=== PATIENT | male | born 1965 | race Caucasian/White ===

== ENCOUNTER 2018-10-09 12:33 | Observation (INO) | payer MEDICAID, OTHER ==
[~2018-10-09] VITALS: Ht 170.2 cm; Wt 73.8 kg
[~2018-10-09 12:33] MED LIST: ASPI-831 PO; ATOR-2 PO; CLOP75TA28 PO; LISI-313 PO; LISI10TA2 PO; LOSA25TA2 PO; METO-335 PO; NAPR-985 PO
[2018-10-09] MEDS ORDERED: NITROGLYCERIN 2% 1 GM OINT PKT TD STA (15:22)
[2018-10-09] MEDS ORDERED: ASPIRIN 81 MG TAB PO STA (15:22)
[2018-10-09] MEDS ORDERED: NITROGLYCERIN (SL) 0.4 MG TAB SL PRN ×2 (15:30→17:30)
[2018-10-09] MEDS ORDERED: ONDANSETRON 4 MG INJ IV PRN ×2 (17:00→17:30)
[2018-10-09] MEDS ORDERED: ACETAMINOPHEN 325 MG TAB PO PRN ×2 (17:00→17:30)
[2018-10-09] MEDS ORDERED: HYDROCODONE/APAP (5/325) TAB PO PRN (17:30)
[2018-10-09] MEDS ORDERED: NACL 0.9% 3 ML SYG IV SCH (17:30)
[2018-10-09] MEDS ORDERED: morphine 2 MG INJ IV PRN (17:30)
[2018-10-09] MEDS ORDERED: MAGNESIUM HYDROXIDE 30ML CUP PO PRN (17:30)
[2018-10-09] MEDS ORDERED: DOCUSATE SODIUM 100 MG CAP PO PRN (17:30)
--- NOTE | 2018-10-09 17:37 | ERD ---
ER Documentation Chief Complaint Chief Complaint "FEELS LIKE MY BLOOD PRESSURE IS HIGH"; CHEST PAIN HPI Patient is a 53-year-old male with cardiac disease and hypertension who presents with chest pain. The the patient has had chest pain for the past 2 days which is left-sided. It is a pressure-like constant pain. He said no treatment as of yet. He was concerned because his blood pressure was elevated recently as well. Upon review of old medical records the patient one previous visit to the ER in March 2018. His primary doctor is in [place]. ROS All systems reviewed and are negative except as per history of present illness. Medications Home Meds Active Scripts Aspirin (Aspirin) 81 Mg Chew, 81 MG PO DAILY for 120 Days, #120 TAB 5 Refills Prov:WHITNEY SCHAFER MD 03/19/18 Metoprolol Succinate* (Toprol XL*) 25 Mg Tab.sr.24h, 25 MG PO DAILY for 120 Days, #120 TAB 5 Refills Prov:WHITNEY SCHAFER MD 03/19/18 Clopidogrel Bisulfate (Clopidogrel) 75 Mg Tablet, 75 MG PO DAILY for 120 Days, #120 TAB 2 Refills Prov:WHITNEY SCHAFER MD 03/19/18 Reported Medications Lisinopril* (Lisinopril*) 10 Mg Tablet, 10 MG PO QAM, #30 TAB 10/09/18 Lisinopril* (Lisinopril*) 5 Mg Tablet, 5 MG PO QPM, #30 TAB 10/09/18 Discontinued Scripts Lisinopril* (Lisinopril*) 5 Mg Tablet, 5 MG PO DAILY for 120 Days, #120 TAB 5 Refills Prov:WHITNEY SCHAFER MD 03/19/18 Atorvastatin* (Atorvastatin*) 80 Mg Tablet, 80 MG PO HS for 120 Days, #120 TAB 5 Refills Prov:WHITNEY SCHAFER MD 03/19/18 Allergies Allergies: Coded Allergies: No Known Drug Allergies (Verified Allergy, Unknown, 10/09/18) PMhx/Soc History of Surgery: No Anesthesia Reaction: No Hx Neurological Disorder: No Hx Respiratory Disorders: No Hx Cardiac Disorders: No Hx Psychiatric Problems: No Hx Miscellaneous Medical Probl: No Hx Alcohol Use: Yes Hx Substance Use: No Hx Tobacco Use: No Smoking Status: Never smoker FmHx Family History: No coronary disease Physical Exam Vitals Vital Signs Date Temp Pulse Resp B/P (MAP) Pulse Ox O2 O2 Flow FiO2 Time Delivery Rate 10/09/18 98.6 87 20 172/88 99 12:36 (116) Physical Exam Const: No acute distress Head: Atraumatic Eyes: Normal Conjunctiva ENT: Normal External Ears, Nose and Mouth. Neck: Full range of motion. No meningismus. Resp: Clear to auscultation bilaterally Cardio: Regular rate and rhythm, no murmurs Abd: Soft, non tender, non distended. Normal bowel sounds Skin: No petechiae or rashes Back: No midline or flank tenderness Ext: No cyanosis, or edema Neur: Awake and alert Psych: Normal Mood and Affect Result Diagram: 10/09/18 1540 10/09/18 1540 Results 24 hrs Laboratory Tests Test 10/09/18 15:40 White Blood Count 6.1 10^3/ul Red Blood Count 5.11 10^6/ul Hemoglobin 17.0 g/dl Hematocrit 49.4 % Mean Corpuscular Volume 96.7 fl Mean Corpuscular Hemoglobin 33.3 pg Mean Corpuscular Hemoglobin Concent 34.4 g/dl Red Cell Distribution Width 12.3 % Platelet Count 255 10^3/UL Mean Platelet Volume 9.7 fl Immature Granulocytes % 0.500 % Neutrophils % 67.4 % Lymphocytes % 21.9 % Monocytes % 7.7 % Eosinophils % 1.5 % Basophils % 1.0 % Nucleated Red Blood Cells % 0.0 /100WBC Immature Granulocytes # 0.030 10^3/ul Neutrophils # 4.1 10^3/ul Lymphocytes # 1.3 10^3/ul Monocytes # 0.5 10^3/ul Eosinophils # 0.1 10^3/ul Basophils # 0.1 10^3/ul Nucleated Red Blood Cells # 0.0 10^3/ul Sodium Level 140 mmol/L Potassium Level 3.8 mmol/L Chloride Level 105 mmol/L Carbon Dioxide Level 27 mmol/L Anion Gap 8 Blood Urea Nitrogen 10 mg/dl Creatinine 0.76 mg/dl Est Glomerular Filtrat Rate mL/min > 60 mL/min Glucose Level 93 mg/dl Calcium Level 9.5 mg/dl Troponin I < 0.012 ng/ml Current Medications Medications Dose Sig/Sharon Start Time Status Last (Trade) Ordered Route PRN Stop Time Admin Dose Reason Admin Aspirin 162 mg ONCE STAT 10/09/18 DC 10/09/18 (Aspirin) PO 15:22 10/09/18 15:26 15:23 1 inch ONCE STAT 10/09/18 DC 10/09/18 Nitroglycerin TD 15:22 10/09/18 15:27 15:23 (Nitroglyceri n 2% Oint) 1 tab Q5M UP TO 3 10/09/18 10/09/18 Nitroglycerin DOSES PRN 15:30 15:26 SL .CHEST (Nitroglyceri PAIN n (Sl Tab) 0.4 Mg) Ondansetron 4 mg ER BRIDGE 10/09/18 HCl (Zofran PRN IV 17:00 10/10/18 Inj) NAUSEA/VOMITI 16:59 NG 650 mg ER BRIDGE 10/09/18 Acetaminophen PRN PO 17:00 10/10/18 (Tylenol .MILD PAIN 16:59 Tab) 1-3 OR TEMP Aspirin 81 mg DAILY PO 10/10/18 UNV (Aspirin) 09:00 Clopidogrel 75 mg DAILY PO 10/10/18 UNV Bisulfate 09:00 (plaVIX) Lisinopril 5 mg QPM PO 10/09/18 UNV (Zestril) 21:00 Lisinopril 10 mg QAM PO 10/10/18 UNV (Zestril) 09:00 Metoprolol 25 mg DAILY PO 10/10/18 UNV Succinate 09:00 (Toprol Xl) IV Flush 3 ml PER 10/09/18 UNV (NS 3 ml) PROTOCOL IV 17:30 Ondansetron 4 mg Q6H PRN 10/09/18 UNV HCl (Zofran IV 17:30 Inj) NAUSEA/VOMITI NG 1 tab Q5M PRN 10/09/18 UNV Nitroglycerin SL .CHEST 17:30 PAIN (Nitroglyceri n (Sl Tab) 0.4 Mg) 650 mg Q6H PRN 10/09/18 UNV Acetaminophen PO .PAIN 1-3 17:30 (Tylenol OR TEMP Tab) 1 tab Q6H PRN 10/09/18 UNV Acetaminophen PO .PAIN 4-6 17:30 / Hydrocodone Bitart ([place] (5/325)) Morphine 2 mg Q4H PRN 10/09/18 UNV Sulfate IV .PAIN 17:30 (morphine) 7-10 Docusate 100 mg Q12H PRN 10/09/18 UNV Sodium PO 17:30 (Colace) .CONSTIPATION Magnesium 30 ml DAILY PRN 10/09/18 UNV Hydroxide PO 17:30 (Milk Of Mag) .CONSTIPATION Famotidine 20 mg Q12 PO 10/09/18 UNV (Pepcid) 21:00 Procedures/MDM EKG read by me: Rate/Rhythm: Regular rate and rhythm at a normal rate Intervals: Normal Impression: No evidence of ischemia or arrhythmia Chest x-ray read by radiology. Patient is a 53-year-old male who presents with chest pain. I am concerned as the patient has previous stent and cardiac disease. I am concerned for possible acute coronary syndrome. I doubt pneumonia, pneumothorax, pulmonary embolism, or aortic dissection. The patient will be admitted to Dr. Pop from the panel team to a telemetry observation bed. Initial troponin is negative. The patient was given aspirin and nitroglycerin. Departure Diagnosis: Primary Impression: Chest pain Chest pain type: unspecified Qualified Codes: R07.9 - Chest pain, unspecified Condition: CARMELITA Wilson MD Oct 09, 2018 17:37
[2018-10-09] MEDS ORDERED: hydrALAzine 20 MG INJ IV PRN (18:00)
--- NOTE | 2018-10-09 18:53 | HP ---
Date/Time of Note Date/Time of Note DATE: 10/09/18 TIME: 18:45 Assessment/Plan VTE Prophylaxis SCD applied (from Nsg): Yes Pharmacological prophylaxis: NA/contraindicated Pharm contraindication: low risk/ambulating Lines/Catheters IV Catheter Type (from Nrsg): Saline Lock Assessment/Plan Assessment/Plan 1. Acute chest pain, rule out ACS - most likely musculoskeletal as is reproducible on exam - initial Trop negative and will check serial troponins - no ST changes on EKG - will give Naproxen for MSK pain and monitor - ECHO from 03/2018 noted 2. Uncontrolled HTN - will change to losartan and monitor for improvement in dry cough. Will adjust medications as needed for better control - continue BB 3. h/o NSTEMI - PCI in 03/2018 and has been compliant on DAPT - Cardiology consulted for monitoring given recent ACS event 4. Diet - Cardiac 5. GI ppx - H2 jenny 6. Disposition - Admit to telemetry for treatment of uncontrolled hypertension and evaluation of acute chest pain Result Diagram: 10/09/18 1540 10/09/18 1540 Results 24hrs Laboratory Tests Test 10/09/18 15:40 White Blood Count 6.1 Red Blood Count 5.11 Hemoglobin 17.0 Hematocrit 49.4 Mean Corpuscular Volume 96.7 Mean Corpuscular Hemoglobin 33.3 H Mean Corpuscular Hemoglobin Concent 34.4 Red Cell Distribution Width 12.3 Platelet Count 255 Mean Platelet Volume 9.7 Immature Granulocytes % 0.500 H Neutrophils % 67.4 Lymphocytes % 21.9 Monocytes % 7.7 Eosinophils % 1.5 Basophils % 1.0 Nucleated Red Blood Cells % 0.0 Immature Granulocytes # 0.030 Neutrophils # 4.1 Lymphocytes # 1.3 Monocytes # 0.5 Eosinophils # 0.1 Basophils # 0.1 Nucleated Red Blood Cells # 0.0 Sodium Level 140 Potassium Level 3.8 Chloride Level 105 Carbon Dioxide Level 27 Anion Gap 8 Blood Urea Nitrogen 10 Creatinine 0.76 Est Glomerular Filtrat Rate mL/min > 60 Glucose Level 93 Calcium Level 9.5 Troponin I < 0.012 HPI/ROS Admit Date/Time Admit Date/Time 10/09/18 Hx of Present Illness 53 yo M with PMH NSTEMI s/p PCI in 03/2018 and HTN presented to ED with complaints of left sided chest pain for the past 2 days. Pain is reproducible but denies any heavy lifting or trauma to area. He also states it has been constant but denies any shortness of breath, dizziness, nausea, vomiting, LOC, abdominal issues, or palpitations. He also is concerned about his elevated blood pressure which is causing discomfort to his right ear. He has not followed up with Cardiology since discharge in March. Of note patient does complain of dry cough that is worse at night and states it began after he was discharged. ROS All 12 systems reviewed and pertinent positives as per HPI. All others negative. Constitutional: No chills, No fatigue, No nausea Eyes: No discharge ENT: other (right ear discomfort) Respiratory: cough; No shortness of breath, No sputum, No wheezing Cardiovascular: chest pain; No edema, No lightheadedness, No palpitations Gastrointestinal: No pain, No constipation, No diarrhea, No nausea, No vomiting Genitourinary: no complaints Musculoskeletal: No back pain, No neck pain Skin: No bruising, No laceration, No rash Neurologic: No confusion, No focal-weakness, No syncope Endocrine: no complaints Psychological: nl mood/affect Immunologic: no complaints PMH/Family/Social Past Medical History Medical History: hypertension, other (NSTEMI) Medications Current Medications Aspirin (Aspirin) 81 mg DAILY PO ; Start 10/10/18 at 09:00 Clopidogrel Bisulfate (plaVIX) 75 mg DAILY PO ; Start 10/10/18 at 09:00 Metoprolol Succinate (Toprol Xl) 25 mg DAILY PO ; Start 10/10/18 at 09:00 IV Flush (NS 3 ml) 3 ml PER PROTOCOL IV ; Start 10/09/18 at 17:30 Ondansetron HCl (Zofran Inj) 4 mg Q6H PRN IV NAUSEA/VOMITING; Start 10/09/18 at 17:30 Nitroglycerin (Nitroglycerin (Sl Tab) 0.4 Mg) 1 tab Q5M PRN SL .CHEST PAIN; Start 10/09/18 at 17:30 Acetaminophen (Tylenol Tab) 650 mg Q6H PRN PO .PAIN 1-3 OR TEMP; Start 10/09/18 at 17:30 Acetaminophen/ Hydrocodone Bitart ([place] (5/325)) 1 tab Q6H PRN PO .PAIN 4-6; Start 10/09/18 at 17:30 Morphine Sulfate (morphine) 2 mg Q4H PRN IV .PAIN 7-10; Start 10/09/18 at 17:30 Docusate Sodium (Colace) 100 mg Q12H PRN PO .CONSTIPATION; Start 10/09/18 at 17:30 Magnesium Hydroxide (Milk Of Mag) 30 ml DAILY PRN PO .CONSTIPATION; Start 10/09/18 at 17:30 Famotidine (Pepcid) 20 mg Q12 PO ; Start 10/09/18 at 21:00 Losartan Potassium (Cozaar) 25 mg BID PO ; Start 10/09/18 at 21:00 Hydralazine HCl (Apresoline) 10 mg Q4H PRN IV SBP >170; Start 10/09/18 at 18:00 Naproxen (Naprosyn) 500 mg BID PO ; Start 10/09/18 at 21:00 Coded Allergies: No Known Drug Allergies (Verified Allergy, Unknown, 10/09/18) Past Surgical History Past Surgical Hx: no surgical history, other (PCI) Family History Significant Family History: no pertinent family hx Social History Alcohol Use: none Smoking Status: Never smoker Drug Use: none Exam/Review of Systems Vital Signs Vitals Vital Signs Date Temp Pulse Resp B/P (MAP) Pulse Ox O2 O2 Flow FiO2 Time Delivery Rate 10/09/18 98.6 87 20 172/88 99 12:36 (116) Exam Exam General: Patient is laying in bed and answers questions appropriately. no acute distress Mentation: Patient is alert and oriented 4 Chest: tender to palpation left chest wall Head: Normocephalic atraumatic Eyes: EOMI, pupils reactive to light Neck: Supple, nontender, midline Respiratory: Clear to auscultation bilaterally. no wheezing or rhonchi Cardiovascular: S1, S2, regular rate and rhythm, no obvious murmurs Gastrointestinal:soft, nontender palpation, nondistended, bowel sounds heard. no rebound or guarding Ext: no edema, cyanosis, or clubbing Neuro: no focal deficits appreciated. CN 2-12 intact Skin: No new skin lesions Additional Comments Home medications reviewed PROCEDURE: XR Chest AP portable CLINICAL INDICATION: Chest pain TECHNIQUE: An AP portable radiograph of the chest was submitted. COMPARISON: 03/18/2018 FINDINGS: Support Hardware: None Cardiovascular: The cardiovascular silhouette appears unremarkable. Lung Grijalva: The patient is again taken a suboptimal inspiration but the lung grijalva are otherwise clear. Pleural Spaces: No pneumothorax or pleural effusion is identified. Osseous Structures: The osseous structures appear intact. Soft Tissues: Unremarkable IMPRESSION: 1. The patient is again taken a poor inspiration compressing the bibasilar lung parenchyma. 2. Otherwise, stable and unremarkable portable chest. Physician Elsy Date Time Electronically viewed and signed by Inna Vickers Physician on 10/09/2018 15:45 TC KIRBY MD Oct 09, 2018 18:53
[2018-10-09] MEDS ORDERED: LISINOPRIL 5 MG TAB PO SCH (21:00)
[2018-10-09] MEDS: LOSARTAN 25 MG TAB PO SCH (22:03)
[2018-10-09] MEDS: NAPROXEN 500 MG TAB PO SCH (22:03)
[2018-10-09] MEDS: FAMOTIDINE 20 MG TAB PO SCH (22:03)
[2018-10-09 22:54] VITALS: Ht 170.2 cm; Wt 73.8 kg
[2018-10-09 22:59] VITALS: BP 109/69; PULSE 54; RESP 18
[2018-10-10 04:18] VITALS: BP 100/56; PULSE 55; RESP 18
[2018-10-10 07:58] VITALS: BP 101/56; PULSE 56; RESP 19
[2018-10-10] MEDS: FAMOTIDINE 20 MG TAB PO SCH (08:39)
[2018-10-10] MEDS: NAPROXEN 500 MG TAB PO SCH (08:39)
[2018-10-10] MEDS: LOSARTAN 25 MG TAB PO SCH (08:40)
[2018-10-10] MEDS ORDERED: POTASSIUM CHLORIDE (SR) 20 MEQ TAB PO STA (08:48)
[2018-10-10] MEDS ORDERED: METOPROLOL (XL) 25 MG TAB PO SCH (09:00)
[2018-10-10] MEDS ORDERED: LISINOPRIL 10 MG TAB PO SCH (09:00)
[2018-10-10] MEDS ORDERED: CLOPIDOGREL 75 MG TAB PO SCH (09:00)
[2018-10-10] MEDS ORDERED: ASPIRIN 81 MG TAB PO SCH (09:00)
[2018-10-10 11:56] VITALS: BP 125/68; PULSE 70; RESP 19
--- NOTE | 2018-10-10 14:26 | CONS ---
Assessment/Plan Assessment/Plan Hospital Course (Demo Recall) Chest wall pain: He has two areas of ecchymoses which he cannot explain the origin of. Likely some form of trauma that he does not remember. These are painful to palpation and the reason for his symptoms. Otherwise EKG is unremarkable and troponins are negative CAD s/p NSTEMI 03/2018 with PCI mid Cx HTN: elevated to 172/88 on admission, now very well controlled HL: LDL 141, unclear compliance -no further cardiac workup and ok for d/c -continue ASA 81mg -plavix until at least 03/2019 -lipitor 80mg though compliance is highly doubtful as his levels have increased since his DC -losartan 25mg -metoprolol succinate 12.5mg daily Consultation Date/Type/Reason Admit Date/Time 10/09/18 Date of Consultation: Oct 10, 2018 Type of Consult Cardiology Reason for Consultation Chest pain Requesting Provider: TC KIRBY MD Date/Time of Note DATE: 10/10/18 TIME: 14:16 Hx of Present Illness 53 yo M with a h/o CAD s/p NSTEMI with PCI to mid Cx 03/2018 by me, HTN, who presented with chest pain. He was concerned because of his prior presentation, however he notes that the pain is unlike his prior episode which was pressure like. This time he as pinpoint pain on his chest wall. It has been constant for 2 days. Upon seeing two areas of ecchymosis on his chest wall, he was asked if he had any trauma but he does not remember. He feels well currently and would like to go home. Trops and EKG unremarkable. His lisinopril was switched to losartan due to cough. He stated that he is otherwise compliant with his meds. per HPI Past Medical History per hPI Home Meds Active Scripts Aspirin (Aspirin) 81 Mg Chew, 81 MG PO DAILY for 120 Days, #120 TAB 5 Refills Prov:WHITNEY SCHAFER MD 03/19/18 Metoprolol Succinate* (Toprol XL*) 25 Mg Tab.sr.24h, 25 MG PO DAILY for 120 Days, #120 TAB 5 Refills Prov:WHITNEY SCHAFER MD 03/19/18 Clopidogrel Bisulfate (Clopidogrel) 75 Mg Tablet, 75 MG PO DAILY for 120 Days, #120 TAB 2 Refills Prov:WHITNEY SCHAFER MD 03/19/18 Reported Medications Lisinopril* (Lisinopril*) 10 Mg Tablet, 10 MG PO QAM, #30 TAB 10/09/18 Lisinopril* (Lisinopril*) 5 Mg Tablet, 5 MG PO QPM, #30 TAB 10/09/18 Discontinued Scripts Lisinopril* (Lisinopril*) 5 Mg Tablet, 5 MG PO DAILY for 120 Days, #120 TAB 5 Refills Prov:WHITNEY SCHAFER MD 03/19/18 Atorvastatin* (Atorvastatin*) 80 Mg Tablet, 80 MG PO HS for 120 Days, #120 TAB 5 Refills Prov:WHITNEY SCHAFER MD 03/19/18 Medications Current Medications Aspirin (Aspirin) 81 mg DAILY PO Last administered on 10/10/18at 08:40; Admin Dose 81 MG; Start 10/10/18 at 09:00 Clopidogrel Bisulfate (plaVIX) 75 mg DAILY PO Last administered on 10/10/18at 08:39; Admin Dose 75 MG; Start 10/10/18 at 09:00 IV Flush (NS 3 ml) 3 ml PER PROTOCOL IV ; Start 10/09/18 at 17:30 Ondansetron HCl (Zofran Inj) 4 mg Q6H PRN IV NAUSEA/VOMITING; Start 10/09/18 at 17:30 Nitroglycerin (Nitroglycerin (Sl Tab) 0.4 Mg) 1 tab Q5M PRN SL .CHEST PAIN; Start 10/09/18 at 17:30 Acetaminophen (Tylenol Tab) 650 mg Q6H PRN PO .PAIN 1-3 OR TEMP; Start 10/09/18 at 17:30 Acetaminophen/ Hydrocodone Bitart ([place] (5/325)) 1 tab Q6H PRN PO .PAIN 4-6; Start 10/09/18 at 17:30 Morphine Sulfate (morphine) 2 mg Q4H PRN IV .PAIN 7-10; Start 10/09/18 at 17:30 Docusate Sodium (Colace) 100 mg Q12H PRN PO .CONSTIPATION; Start 10/09/18 at 17:30 Magnesium Hydroxide (Milk Of Mag) 30 ml DAILY PRN PO .CONSTIPATION; Start 10/09/18 at 17:30 Famotidine (Pepcid) 20 mg Q12 PO Last administered on 10/10/18at 08:39; Admin Dose 20 MG; Start 10/09/18 at 21:00 Losartan Potassium (Cozaar) 25 mg BID PO Last administered on 10/10/18at 08:40; Admin Dose 25 MG; Start 10/09/18 at 21:00 Hydralazine HCl (Apresoline) 10 mg Q4H PRN IV SBP >170; Start 10/09/18 at 18:00 Naproxen (Naprosyn) 500 mg BID PO Last administered on 10/10/18at 08:39; Admin Dose 500 MG; Start 10/09/18 at 21:00 Metoprolol Succinate (Toprol Xl) 12.5 mg DAILY PO ; Start 10/11/18 at 09:00 Allergies: Coded Allergies: No Known Drug Allergies (Verified Allergy, Unknown, 10/09/18) Past Surgical History Past Surgical Hx: no surgical history, other (PCI) Social History Alcohol Use: none Smoking Status: Never smoker Drug Use: none Exam/Review of Systems Vital Signs Vitals Vital Signs Date Temp Pulse Resp B/P (MAP) Pulse Ox O2 O2 Flow FiO2 Time Delivery Rate 10/10/18 98.7 70 19 125/68 99 11:56 (87) 10/10/18 Room Air 04:18 Intake and Output 10/09/18 10/09/18 10/10/18 1515:00 23:00 07:00 IntakeIntake Total 200 ml BalanceBalance 200 ml Exam Constitutional: alert, oriented Psych: no complaints, nl mood/affect Head: normocephalic, atraumatic Neck: supple; No jvd Respiratory: clear to auscultation; No crackles/rales Cardiovascular: regular rate and rhythm, other (chest wall with two areas of ecchymosis with pain on palpation); No edema Gastrointestinal: soft, non-tender; No distended Neurological: nl mental status, nl speech Labs Result Diagram: 10/10/18 0322 10/10/18 0322 Results 24hrs Laboratory Tests Test 10/09/18 15:40 10/09/18 22:57 10/10/18 03:22 White Blood Count 6.1 5.9 Red Blood Count 5.11 4.95 Hemoglobin 17.0 16.4 Hematocrit 49.4 47.8 Mean Corpuscular Volume 96.7 96.6 Mean Corpuscular Hemoglobin 33.3 H 33.1 H Mean Corpuscular Hemoglobin Concent 34.4 34.3 Red Cell Distribution Width 12.3 12.7 Platelet Count 255 251 Mean Platelet Volume 9.7 9.6 Immature Granulocytes % 0.500 H 0.500 H Neutrophils % 67.4 54.2 Lymphocytes % 21.9 31.2 Monocytes % 7.7 9.4 Eosinophils % 1.5 3.5 Basophils % 1.0 1.2 Nucleated Red Blood Cells % 0.0 0.0 Immature Granulocytes # 0.030 0.030 Neutrophils # 4.1 3.2 Lymphocytes # 1.3 1.9 Monocytes # 0.5 0.6 Eosinophils # 0.1 0.2 Basophils # 0.1 0.1 Nucleated Red Blood Cells # 0.0 0.0 Sodium Level 140 141 Potassium Level 3.8 3.5 Chloride Level 105 106 Carbon Dioxide Level 27 27 Anion Gap 8 8 Blood Urea Nitrogen 10 12 Creatinine 0.76 0.85 Est Glomerular Filtrat Rate mL/min > 60 > 60 Glucose Level 93 116 Calcium Level 9.5 9.4 Troponin I < 0.012 < 0.012 < 0.012 Creatine Kinase 46 44 Creatine Kinase Index 0.5 0.5 Creatinine Kinase MB (Mass) < 0.22 < 0.22 Magnesium Level 2.3 Triglycerides Level 165 H Cholesterol Level 210 H LDL Cholesterol, Calculated 141 HDL Cholesterol 36 Cholesterol/HDL Ratio 5.8 Thyroid Stimulating Hormone (TSH) 1.300 Medications Medications Current Medications Aspirin (Aspirin) 81 mg DAILY PO Last administered on 10/10/18at 08:40; Admin Dose 81 MG; Start 10/10/18 at 09:00 Clopidogrel Bisulfate (plaVIX) 75 mg DAILY PO Last administered on 10/10/18at 08:39; Admin Dose 75 MG; Start 10/10/18 at 09:00 IV Flush (NS 3 ml) 3 ml PER PROTOCOL IV ; Start 10/09/18 at 17:30 Ondansetron HCl (Zofran Inj) 4 mg Q6H PRN IV NAUSEA/VOMITING; Start 10/09/18 at 17:30 Nitroglycerin (Nitroglycerin (Sl Tab) 0.4 Mg) 1 tab Q5M PRN SL .CHEST PAIN; Start 10/09/18 at 17:30 Acetaminophen (Tylenol Tab) 650 mg Q6H PRN PO .PAIN 1-3 OR TEMP; Start 10/09/18 at 17:30 Acetaminophen/ Hydrocodone Bitart ([place] (5/325)) 1 tab Q6H PRN PO .PAIN 4-6; Start 10/09/18 at 17:30 Morphine Sulfate (morphine) 2 mg Q4H PRN IV .PAIN 7-10; Start 10/09/18 at 17:30 Docusate Sodium (Colace) 100 mg Q12H PRN PO .CONSTIPATION; Start 10/09/18 at 17:30 Magnesium Hydroxide (Milk Of Mag) 30 ml DAILY PRN PO .CONSTIPATION; Start 10/09/18 at 17:30 Famotidine (Pepcid) 20 mg Q12 PO Last administered on 10/10/18at 08:39; Admin Dose 20 MG; Start 10/09/18 at 21:00 Losartan Potassium (Cozaar) 25 mg BID PO Last administered on 10/10/18at 08:40; Admin Dose 25 MG; Start 10/09/18 at 21:00 Hydralazine HCl (Apresoline) 10 mg Q4H PRN IV SBP >170; Start 10/09/18 at 18:00 Naproxen (Naprosyn) 500 mg BID PO Last administered on 10/10/18at 08:39; Admin Dose 500 MG; Start 10/09/18 at 21:00 Metoprolol Succinate (Toprol Xl) 12.5 mg DAILY PO ; Start 10/11/18 at 09:00 KAREN TATUM Oct 10, 2018 14:26
--- NOTE | 2018-10-10 14:38 | PN ---
Date/Time of Note Date/Time of Note DATE: 10/10/18 TIME: 14:34 Assessment/Plan VTE Prophylaxis Risk score (from Ns)>0 risk: 1 SCD applied (from [facility] [place]): No SCD contraindicated: low risk/ambulating Pharmacological prophylaxis: NA/contraindicated Pharm contraindication: low risk/ambulating Lines/Catheters IV [facility]from [facility] Saline Lock Urinary Cath still in place: No Assessment/Plan Assessment/Plan 1. Acute chest pain, musculoskeletal etiology - negative serial troponins and no ST changes on EKG - Cardiology consultation appreciated and cleared for d/c - will give Naproxen for MSK pain and monitor - ECHO from 03/2018 noted 2. Uncontrolled HTN- improved - will continue on current medications 3. h/o NSTEMI - PCI in 03/2018 and has been compliant on DAPT 4. Disposition - Medically stable for discharge home Result Diagram: 10/10/18 0322 10/10/18 0322 Results 24hrs Laboratory Tests Test 10/09/18 15:40 10/09/18 22:57 10/10/18 03:22 White Blood Count 6.1 5.9 Red Blood Count 5.11 4.95 Hemoglobin 17.0 16.4 Hematocrit 49.4 47.8 Mean Corpuscular Volume 96.7 96.6 Mean Corpuscular Hemoglobin 33.3 H 33.1 H Mean Corpuscular Hemoglobin Concent 34.4 34.3 Red Cell Distribution Width 12.3 12.7 Platelet Count 255 251 Mean Platelet Volume 9.7 9.6 Immature Granulocytes % 0.500 H 0.500 H Neutrophils % 67.4 54.2 Lymphocytes % 21.9 31.2 Monocytes % 7.7 9.4 Eosinophils % 1.5 3.5 Basophils % 1.0 1.2 Nucleated Red Blood Cells % 0.0 0.0 Immature Granulocytes # 0.030 0.030 Neutrophils # 4.1 3.2 Lymphocytes # 1.3 1.9 Monocytes # 0.5 0.6 Eosinophils # 0.1 0.2 Basophils # 0.1 0.1 Nucleated Red Blood Cells # 0.0 0.0 Sodium Level 140 141 Potassium Level 3.8 3.5 Chloride Level 105 106 Carbon Dioxide Level 27 27 Anion Gap 8 8 Blood Urea Nitrogen 10 12 Creatinine 0.76 0.85 Est Glomerular Filtrat Rate mL/min > 60 > 60 Glucose Level 93 116 Calcium Level 9.5 9.4 Troponin I < 0.012 < 0.012 < 0.012 Creatine Kinase 46 44 Creatine Kinase Index 0.5 0.5 Creatinine Kinase MB (Mass) < 0.22 < 0.22 Magnesium Level 2.3 Triglycerides Level 165 H Cholesterol Level 210 H LDL Cholesterol, Calculated 141 HDL Cholesterol 36 Cholesterol/HDL Ratio 5.8 Thyroid Stimulating Hormone (TSH) 1.300 Subjective 24 Hr Interval Summary Free Text/Dictation Patient states hes feeling better and denies any new issues. Chest pain has r esolved as well and no longer experiencing any ear issues. Exam/Review of Systems Exam Vitals Vital Signs Date Temp Pulse Resp B/P (MAP) Pulse Ox O2 O2 Flow FiO2 Time Delivery Rate 10/10/18 98.7 70 19 125/68 99 11:56 (87) 10/10/18 Room Air 04:18 Intake and Output 10/09/18 10/09/18 10/10/18 1515:00 23:00 07:00 IntakeIntake Total 200 ml BalanceBalance 200 ml Exam General: Patient is laying in bed and answers questions appropriately. no acute distress Chest: mild tenderness to palpation left chest wall Neck: Supple, nontender, midline Respiratory: Clear to auscultation bilaterally. no wheezing or rhonchi Cardiovascular: S1, S2, regular rate and rhythm, no obvious murmurs Gastrointestinal:soft, nontender palpation, nondistended, bowel sounds heard. no rebound or guarding Ext: no edema, cyanosis, or clubbing Results Results 24hrs Laboratory Tests Test 10/09/18 15:40 10/09/18 22:57 10/10/18 03:22 White Blood Count 6.1 5.9 Red Blood Count 5.11 4.95 Hemoglobin 17.0 16.4 Hematocrit 49.4 47.8 Mean Corpuscular Volume 96.7 96.6 Mean Corpuscular Hemoglobin 33.3 H 33.1 H Mean Corpuscular Hemoglobin Concent 34.4 34.3 Red Cell Distribution Width 12.3 12.7 Platelet Count 255 251 Mean Platelet Volume 9.7 9.6 Immature Granulocytes % 0.500 H 0.500 H Neutrophils % 67.4 54.2 Lymphocytes % 21.9 31.2 Monocytes % 7.7 9.4 Eosinophils % 1.5 3.5 Basophils % 1.0 1.2 Nucleated Red Blood Cells % 0.0 0.0 Immature Granulocytes # 0.030 0.030 Neutrophils # 4.1 3.2 Lymphocytes # 1.3 1.9 Monocytes # 0.5 0.6 Eosinophils # 0.1 0.2 Basophils # 0.1 0.1 Nucleated Red Blood Cells # 0.0 0.0 Sodium Level 140 141 Potassium Level 3.8 3.5 Chloride Level 105 106 Carbon Dioxide Level 27 27 Anion Gap 8 8 Blood Urea Nitrogen 10 12 Creatinine 0.76 0.85 Est Glomerular Filtrat Rate mL/min > 60 > 60 Glucose Level 93 116 Calcium Level 9.5 9.4 Troponin I < 0.012 < 0.012 < 0.012 Creatine Kinase 46 44 Creatine Kinase Index 0.5 0.5 Creatinine Kinase MB (Mass) < 0.22 < 0.22 Magnesium Level 2.3 Triglycerides Level 165 H Cholesterol Level 210 H LDL Cholesterol, Calculated 141 HDL Cholesterol 36 Cholesterol/HDL Ratio 5.8 Thyroid Stimulating Hormone (TSH) 1.300 Medications Medication Current Medications Aspirin (Aspirin) 81 mg DAILY PO Last administered on 10/10/18at 08:40; Admin Dose 81 MG; Start 10/10/18 at 09:00 Clopidogrel Bisulfate (plaVIX) 75 mg DAILY PO Last administered on 10/10/18at 08:39; Admin Dose 75 MG; Start 10/10/18 at 09:00 IV Flush (NS 3 ml) 3 ml PER PROTOCOL IV ; Start 10/09/18 at 17:30 Ondansetron HCl (Zofran Inj) 4 mg Q6H PRN IV NAUSEA/VOMITING; Start 10/09/18 at 17:30 Nitroglycerin (Nitroglycerin (Sl Tab) 0.4 Mg) 1 tab Q5M PRN SL .CHEST PAIN; Start 10/09/18 at 17:30 Acetaminophen (Tylenol Tab) 650 mg Q6H PRN PO .PAIN 1-3 OR TEMP; Start 10/09/18 at 17:30 Acetaminophen/ Hydrocodone Bitart (Laotto (5/325)) 1 tab Q6H PRN PO .PAIN 4-6; Start 10/09/18 at 17:30 Morphine Sulfate (morphine) 2 mg Q4H PRN IV .PAIN 7-10; Start 10/09/18 at 17:30 Docusate Sodium (Colace) 100 mg Q12H PRN PO .CONSTIPATION; Start 10/09/18 at 17:30 Magnesium Hydroxide (Milk Of Mag) 30 ml DAILY PRN PO .CONSTIPATION; Start 10/09/18 at 17:30 Famotidine (Pepcid) 20 mg Q12 PO Last administered on 10/10/18at 08:39; Admin Dose 20 MG; Start 10/09/18 at 21:00 Losartan Potassium (Cozaar) 25 mg BID PO Last administered on 10/10/18at 08:40; Admin Dose 25 MG; Start 10/09/18 at 21:00 Hydralazine HCl (Apresoline) 10 mg Q4H PRN IV SBP >170; Start 10/09/18 at 18:00 Naproxen (Naprosyn) 500 mg BID PO Last administered on 10/10/18at 08:39; Admin Dose 500 MG; Start 10/09/18 at 21:00 Metoprolol Succinate (Toprol Xl) 12.5 mg DAILY PO ; Start 10/11/18 at 09:00 TC KIRBY MD Oct 10, 2018 14:38
--- NOTE | 2018-10-10 14:44 | PDOCDIS ---
Discharge Instructions DIAGNOSIS Discharge Diagnosis 1. Acute chest pain, musculoskeletal 2. Uncontrolled HTN- resolved 3. h/o NSTEMI CONDITION [id number] Patient Condition: [id number] Stable HOME CARE INSTRUCTIONS: [id number] Diet Instructions: [id number] Low Fat /Cholesterol ACTIVITY: [id number] Activity Restrictions: [id number] No Restrictions FOLLOW UP/APPOINTMENTS Follow-up Plan 1. Follow up with your primary care physician in 1-2 wees 2. Continue taking Metoprolol daily. STOP taking Lisinopril as this was causing your dry cough. Please take Losartan 25mg twice a day instead for blood pressure control. 3. Take Naproxen as needed if chest discomfort is bothering you. Given you are on two blood thinners, be careful when taking Naproxen since also thins your blood. If you experiencing any cuts, falls, or head trauma go to the ED for evaluation 4. Continue taking aspirin for the rest of your life and Plavix for 1 years following stent placement. 5. If experiencing any concerning symptoms. please go to the closest emergency department TC KIRBY MD Oct 10, 2018 14:44
--- NOTE | 2018-10-10 17:02 | DS ---
Date/Time of Note Date/Time of Note DATE: 10/10/18 TIME: 16:59 Discharge Summary Admission/Discharge Info Admit Date/Time Oct 09, 2018 at 16:51 Discharge Date/Time Oct 10, 2018 at 15:33 Discharge Diagnosis 1. Acute chest pain, musculoskeletal 2. Uncontrolled HTN- resolved 3. h/o NSTEMI Patient Condition: Stable Consults Cardiology- Dr. Hopper Hx of Present Illness 53 yo M with PMH NSTEMI s/p PCI in 03/2018 and HTN presented to ED with complaints of left sided chest pain for the past 2 days. Pain is reproducible but denies any heavy lifting or trauma to area. He also states it has been constant but denies any shortness of breath, dizziness, nausea, vomiting, LOC, abdominal issues, or palpitations. He also is concerned about his elevated blood pressure which is causing discomfort to his right ear. He has not followed up with Cardiology since discharge in March. Of note patient does complain of dry cough that is worse at night and states it began after he was discharged. Hospital Course Patient was admitted for treatment of uncontrolled hypertension and acute chest pain. Medication adjustments were made with better blood pressure control. Patient was evaluated by Cardiology given history of recent NSTEMI but with negative serial troponins and normal EKG, acute ACS was ruled out. Patient chest pain resolved as well as ear pain. Patient was tolerated PO intake and am bulating without any issues. He was cleared for discharge from Cardiology standpoint and vitals remained stable. Patient was discharged home in good condition. Home Meds Active Scripts Naproxen* (Naprosyn*) 500 Mg Tablet, 500 MG PO BID for 7 Days, #14 TAB Prov:TC KIRBY MD 10/10/18 Losartan Potassium* (Cozaar*) 25 Mg Tablet, 25 MG PO BID for 30 Days, #60 TAB 1 Refill Prov:TC KIRBY MD 10/10/18 Aspirin (Aspirin) 81 Mg Chew, 81 MG PO DAILY for 120 Days, #120 TAB 5 Refills Prov:WHITNEY SCHAFER MD 03/19/18 Metoprolol Succinate* (Toprol XL*) 25 Mg Tab.sr.24h, 25 MG PO DAILY for 120 Days, #120 TAB 5 Refills Prov:WHITNEY SCHAFER MD 03/19/18 Clopidogrel Bisulfate (Clopidogrel) 75 Mg Tablet, 75 MG PO DAILY for 120 Days, #120 TAB 2 Refills Prov:WHITNEY SCHAFER MD 03/19/18 Discontinued Reported Medications Lisinopril* (Lisinopril*) 10 Mg Tablet, 10 MG PO QAM, #30 TAB 10/09/18 Lisinopril* (Lisinopril*) 5 Mg Tablet, 5 MG PO QPM, #30 TAB 10/09/18 Discontinued Scripts Lisinopril* (Lisinopril*) 5 Mg Tablet, 5 MG PO DAILY for 120 Days, #120 TAB 5 Refills Prov:WHITNEY SCHAFER MD 03/19/18 Atorvastatin* (Atorvastatin*) 80 Mg Tablet, 80 MG PO HS for 120 Days, #120 TAB 5 Refills Prov:WHITNEY SCHAFER MD 03/19/18 Follow-up Plan 1. Follow up with your primary care physician in 1-2 wees 2. Continue taking Metoprolol daily. STOP taking Lisinopril as this was causing your dry cough. Please take Losartan 25mg twice a day instead for blood pressure control. 3. Take Naproxen as needed if chest discomfort is bothering you. Given you are on two blood thinners, be careful when taking Naproxen since also thins your blood. If you experiencing any cuts, falls, or head trauma go to the ED for evaluation 4. Continue taking aspirin for the rest of your life and Plavix for 1 years following stent placement. 5. If experiencing any concerning symptoms. please go to the closest emergency department Primary Care Provider Care Physician No Primary Time spent on discharge: > 30 minutes Pending Labs Laboratory Tests Test 10/09/18 22:57 10/10/18 03:22 Creatine Kinase 46 IU/L (23-200) 44 IU/L (23-200) Creatine Kinase Index 0.5 0.5 Creatinine Kinase MB < 0.22 ng/ml (0.0-2.4) < 0.22 ng/ml (0.0-2.4) (Mass) Troponin I < 0.012 < 0.012 ng/ml (0.000-0.120) ng/ml (0.000-0.120) White Blood Count 5.9 10^3/ul (4.8-10.8) Red Blood Count 4.95 10^6/ul (4.70-6.10) Hemoglobin 16.4 g/dl (14.0-18.0) Hematocrit 47.8 % (42.0-52.0) Mean Corpuscular Volume 96.6 fl (82.0-101.0) Mean Corpuscular 33.1 pg (29.0-33.0) Hemoglobin Mean Corpuscular 34.3 g/dl (32.0-37.0) Hemoglobin Concent Red Cell Distribution 12.7 % (11.5-14.5) Width Platelet Count 251 10^3/UL (140-415) Mean Platelet Volume 9.6 fl (7.4-10.4) Immature Granulocytes % 0.500 % (0.001-0.429) Neutrophils % 54.2 % (39.0-77.0) Lymphocytes % 31.2 % (15.0-51.0) Monocytes % 9.4 % (0.0-11.0) Eosinophils % 3.5 % (0.0-7.0) Basophils % 1.2 % (0.0-2.0) Nucleated Red Blood Cells 0.0 /100WBC (0.0-0.0) % Immature Granulocytes # 0.030 10^3/ul (0.0-0.031) Neutrophils # 3.2 10^3/ul (1.6-7.5) Lymphocytes # 1.9 10^3/ul (0.8-2.9) Monocytes # 0.6 10^3/ul (0.3-0.9) Eosinophils # 0.2 10^3/ul (0.0-0.5) Basophils # 0.1 10^3/ul (0.0-0.1) Nucleated Red Blood Cells 0.0 10^3/ul (0.0-0.0) # Sodium Level 141 mmol/L (135-144) Potassium Level 3.5 mmol/L (3.5-5.1) Chloride Level 106 mmol/L (97-110) Carbon Dioxide Level 27 mmol/L (21-31) Anion Gap 8 (5-13) Blood Urea Nitrogen 12 mg/dl (7-20) Creatinine 0.85 mg/dl (0.61-1.24) Est Glomerular Filtrat > 60 mL/min (>60) Rate mL/min Glucose Level 116 mg/dl (70-220) Calcium Level 9.4 mg/dl (8.4-10.2) Magnesium Level 2.3 mg/dl (1.7-2.5) Triglycerides Level 165 mg/dl (0-149) Cholesterol Level 210 mg/dl (100-200) LDL Cholesterol, 141 mg/dl Calculated HDL Cholesterol 36 mg/dl (28-71) Cholesterol/HDL Ratio 5.8 RATIO Thyroid Stimulating 1.300 MIU/L (0.465-4.680) Hormone (TSH) TC KIRBY MD Oct 10, 2018 17:02
[2018-10-11] MEDS ORDERED: METOPROLOL (XL) 25 MG TAB PO SCH (09:00)
== END 2018-10-10 15:33 | disposition home or self-care (01) ==
LOC: E/R 12:33 → 6WM 16:51
PROVIDERS: ADMIT Internal Medicine; ATTEND Internal Medicine
DX: R07.9 Chest pain, unspecified (principal); I10 Essential (primary) hypertension; I25.10 Atherosclerotic heart disease of native coronary artery without angina pectoris; Z79.82 Long term (current) use of aspirin
CPT/HCPCS: 36415; 71045; 80048; 80061; 82550; 82553; 83735; 84443; 84484; 85025; 93005; 97161; 97166; Z7500; Z7502; Z7610; 99217; G0378